=== PATIENT | female | born 1990 | race Caucasian/White ===

== ENCOUNTER 2016-07-04 18:51 | Emergency (ER) | payer SELFPAY ==
[~2016-07-04] VITALS: Ht 152.4 cm; Wt 51.2 kg
[2016-07-05 01:09] VITALS: BP 125/87
== END 2016-07-05 01:01 | disposition left against medical advice (07) ==
LOC: ED 18:51
DX: Z53.21 Procedure and treatment not carried out due to patient leaving prior to being seen by health care provider (principal)

== ENCOUNTER 2016-07-05 14:35 | Emergency (ER) | payer SELFPAY ==
[~2016-07-05] VITALS: Ht 152.4 cm; Wt 50.3 kg
[2016-07-05 14:41] VITALS: BP 123/69
== END 2016-07-05 15:53 | disposition home or self-care (01) ==
LOC: ED 14:35
DX: J01.00 Acute maxillary sinusitis, unspecified (principal); R42 Dizziness and giddiness; F41.9 Anxiety disorder, unspecified

== ENCOUNTER 2016-08-04 22:08 | Emergency (ER) | payer MEDICAID ==
[2016-08-05] VITALS: BP 99/64
== END 2016-08-05 | disposition home or self-care (01) ==
LOC: ED 22:08
DX: J06.9 Acute upper respiratory infection, unspecified (principal); R14.0 Abdominal distension (gaseous); R10.31 Right lower quadrant pain; F41.9 Anxiety disorder, unspecified; Z79.899 Other long term (current) drug therapy

== ENCOUNTER 2018-10-22 19:51 | Emergency (ER) | payer MEDICAID ==
[~2018-10-22] VITALS: Ht 154.9 cm; Wt 59.4 kg
[2018-10-22 20:03] VITALS: Ht 154.9 cm; Wt 59.4 kg
[2018-10-22 20:48] VITALS: BP 121/78
== END 2018-10-22 20:48 | disposition home or self-care (01) ==
LOC: ED 19:51
DX: L03.012 Cellulitis of left finger (principal); F41.9 Anxiety disorder, unspecified